=== PATIENT | male | born 1970 | race Caucasian/White ===

== ENCOUNTER 2024-03-31 18:42 | Inpatient (IN) | payer OTHER ==
[2024-03-31 20:07] VITALS: BMI 27.6
[2024-03-31] MEDS ORDERED: IBUPROFEN 400 MG TABLET (FP) PO PRN (23:04)
[2024-03-31] MEDS ORDERED: MAGNESIUM HYDROX 2400MG/30ML ORAL SUSPENSION 30 ML CUP PO PRN (23:04)
[2024-03-31] MEDS ORDERED: DICYCLOMINE HCL 10 MG CAPSULE PO PRN (23:04)
[2024-03-31] MEDS ORDERED: LOPERAMIDE HCL 2 MG CAPSULE PO PRN (23:04)
[2024-03-31] MEDS ORDERED: BENZONATATE 200 MG CAPSULE PO PRN (23:04)
[2024-03-31] MEDS ORDERED: NALOXONE (NARCAN) HCL 4 MG/0.1 ML SPRAY NS PRN (23:04)
[2024-03-31] MEDS ORDERED: POLYETHYLENE GLYCOL (HEALTHYLAX) 3350 17 GM PACKET PO PRN (23:04)
[2024-03-31] MEDS ORDERED: ONDANSETRON *ODT* 4 MG TABLET SL PRN (23:04)
[2024-03-31] MEDS ORDERED: MAG HYDROX/AL HYDROX/SIMETH 30 ML UNIT-DOSE CUP PO PRN (23:04)
[2024-03-31] MEDS ORDERED: NALOXONE HCL 0.4 MG/ML VIAL IM PRN (23:04)
[2024-03-31] MEDS ORDERED: guaiFENesin 600 MG TABLET.ER (FP) PO PRN (23:04)
[2024-03-31] MEDS ORDERED: BENZOCAINE/MENTHOL (CHLORASEPTIC ) LOZENGE MM PRN (23:04)
[2024-03-31] MEDS ORDERED: BISMUTH SUBSALICYLATE 524 MG/30 ML PO PRN (23:04)
[2024-03-31] MEDS ORDERED: chlordiazePOXIDE HCL 25 MG CAPSULE ONE (23:24)
[2024-03-31] MEDS: chlordiazePOXIDE HCL 25 MG CAPSULE PO SCH (23:32)
[2024-03-31] MEDS: cloNIDine HCL 0.1 MG TABLET PO ONE (23:51)
[2024-04-01] MEDS ORDERED: TUBERCULIN PPD 5 TU/0.1ML VIAL ID ONE (03:05)
[2024-04-01] MEDS: cloNIDine HCL 0.1 MG TABLET PO ONE ×2 (06:33→21:41)
[2024-04-01] MEDS: amLODIPine BESYLATE 5 MG TABLET (FP) PO SCH (10:01)
[2024-04-01] MEDS: PRENATAL VITAMINS W/ FOLIC ACID TABLET (FP) PO SCH (10:01)
[2024-04-01 11:13] LABS: HEMATOCRIT 43.4 % (35.4-49); HEMOGLOBIN 14.8 GM/dL (11.7-16.9); MCHC 34.1 g/dl (32.0-35.9); MEAN CELL VOLUME 96.6 fl (80-96); MEAN PLT VOLUME 7.2 fl (7.5-11.1); PLATELET COUNT 290 10^3/uL (134-434); RBC 4.49 M/mm3 (4.00-5.60); RDW 13.7 % (11.9-15.9); WHITE BLOOD COUNT 4.8 K/mm3 (4.0-10.0)
[2024-04-01 11:19] LABS: CHLORIDE 96 mmol/L (98-107); SODIUM 137 mmol/L (136-145)
[2024-04-01 11:23] LABS: ALBUMIN 4.1 g/dl (3.4-5.0); ANION GAP 6 mmol/L (4-13); BLOOD UREA NITROGEN 6.6 mg/dL (7-18); CALCIUM 9.3 mg/dL (8.5-10.1); CO2 35 mmol/L (21-32); GLUCOSE,RANDOM 161 mg/dL (74-106)
[2024-04-01 11:26] LABS: SGOT/AST 152 U/L (15-37)
[2024-04-01 11:27] LABS: SGPT/ALT 96 U/L (13-61)
[2024-04-01 11:28] LABS: BILIRUBIN,TOTAL 1.9 mg/dL (0.2-1); TOT PROT 7.7 g/dl (6.4-8.2)
[2024-04-01 11:29] LABS: ALK PHOS 66 U/L (45-117)
[2024-04-01] MEDS: chlordiazePOXIDE HCL 25 MG CAPSULE PO PRN (20:42)
[2024-04-01] MEDS: hydrOXYzine PAMOATE 25 MG CAPSULE (FP) PO PRN (21:27)
[2024-04-01] MEDS: METHOCARBAMOL 500 MG TABLET PO PRN (21:28)
[2024-04-01] MEDS: MELATONIN 5 MG TABLETS PO SCH (22:48)
[2024-04-01] MEDS: THIAMINE 100 MG TABLET PO SCH (22:48)
[2024-04-01] MEDS: ACETAMINOPHEN 325 MG TABLET (FP) PO PRN (22:52)
[2024-04-02] MEDS: chlordiazePOXIDE HCL 25 MG CAPSULE PO SCH (05:42)
[2024-04-02] MEDS: POTASSIUM CHLORIDE ORAL LIQUID 20 MEQ/15 ML PO ONE (09:10)
[2024-04-03] MEDS ORDERED: chlordiazePOXIDE HCL 10 MG CAPSULE PO PRN
[2024-04-03] MEDS: chlordiazePOXIDE HCL 10 MG CAPSULE PO SCH (05:41)
[2024-04-03 14:48] LABS: POTASSIUM 3.5 mmol/L (3.5-5.1)
[2024-04-03 14:49] LABS: CALCIUM 8.9 mg/dL (8.5-10.1)
[2024-04-03 14:51] LABS: BLOOD UREA NITROGEN 12.9 mg/dL (7-18)
[2024-04-03 14:54] LABS: CREATININE 0.8 mg/dL (0.55-1.3)
[2024-04-03] MEDS: IBUPROFEN 600 MG TABLET (FP) PO PRN (22:10)
[2024-04-04] MEDS: chlordiazePOXIDE HCL 10 MG CAPSULE PO SCH (05:35)
[2024-04-05] MEDS: chlordiazePOXIDE HCL 10 MG CAPSULE PO ONE (05:43)
[2024-04-05 06:24] VITALS: PULSE 89; RESP 17; TEMP 97.8
[2024-04-05 07:46] VITALS: BP 132/86
== END 2024-04-05 09:03 | disposition home or self-care (01) | DRG 774 ==
LOC: YASAS 18:42 → Y3N 04-01 01:30
PROVIDERS: ADMIT Allergy & Immunology; ATTEND Allergy & Immunology
PROC: HZ2ZZZZ Detoxification Services for Substance Abuse Treatment (ICD-10-PCS; principal; 2024-04-01)
DX: F10.230 Alcohol dependence with withdrawal, uncomplicated (principal); F14.10 Cocaine abuse, uncomplicated; I10 Essential (primary) hypertension; Z87.891 Personal history of nicotine dependence
CPT/HCPCS: 36415; 80048; 80053; 80305; 80307; 85027; 86780; 93005; 93010